=== PATIENT | male | born 1935 | race Caucasian/White ===

== ENCOUNTER → 2016-05-14 | Outpatient (CLI) | payer MEDICARE, OTHER ==
[~2016-05-14] MED LIST: ASPI-664 PO; LOSA50TA6 PO
--- NOTE | 2016-05-14 20:17 | HKNOTE ---
DATE OF SERVICE: 05/14/2016 MAIN COMPLAINT: Left-sided sciatica, pain in both knees. HISTORY OF MAIN COMPLAINT: The patient is an 81-year-old male who complains of pain in his left but tocks which has been present for about a month. He has degenerative osteoarthritis of both knees, s lightly worse on the left side. He complains of pain in the left buttocks with radiation to the low er back but no radiation to the leg. He has numbness and tingling in both feet. He is not able to walk because of his knees. He is not able to walk more than about 100 feet at a time. His knees ar e still his main problem. The right knee is worse than the left. PHYSICAL EXAMINATION: GENERAL: The patient is a fit-looking, youthful 81-year-old male. VITAL SIGNS: Height 5 feet 10 inches. Weight 203 pounds. Blood pressure 100/55, temperature 99.0. BACK: Dynamic pain assessment reveals a pain free range of motion in flexion, extension, lateral be nding, and rotation. Inspection of the spine reveals no list. There is no lumbar paraspinal muscle s pasm. The pelvis is level. Facet stress test is negative bilaterally. Palpation of the spine demonst rates no tenderness of the spinous processes, facet joints, sacroiliac joint, sciatic notch, or post erior thigh. NEUROLOGIC: Motor examination reveals no muscle deficit in the lower extremities. Deep tendon refle xes in the lower extremities: Right knee jerk +, left knee jerk +, right ankle jerk +, left ankle j erk +. Straight leg raising is negative bilaterally at 80 degrees. Lasegue and ANDRES tests are negat geena. KNEES: Clinically the patient has severe arthritis of both knees with marked varus alignment of bot h knees. MANAGEMENT: The patient is advised that the pain in his buttocks is almost certainly coming from hi s spine. The location is not one where hip pain occurs. He has severe arthritis of both his knees. That is his main problem. He has a pain management physician, Dr. Fung. Under sterile conditions, the patient given injection of Monovisc into each knee, and he will be see n again as necessary for further evaluation and treatment. Dictated By: SHREE DE GUZMAN/CARLYN Conf#: [id number] DID#: [id number]
== END | disposition home or self-care (01) ==
LOC: HKI 14:19
DX: M17.0 Bilateral primary osteoarthritis of knee (principal); M54.32 Sciatica, left side; M25.562 Pain in left knee; M25.561 Pain in right knee
CPT/HCPCS: 20610; G0463; J7327

== ENCOUNTER → 2016-05-28 | Outpatient (CLI) | payer MEDICARE, OTHER ==
--- NOTE | 2016-05-29 20:22 | HKNOTE ---
DATE OF SERVICE: 05/28/2016 The patient comes with the MRI scan for review. The MRI of his lumbar spine obtained on 05/24/[address] Melinda Duong as showing "at L4-5 there is a degenerative anterolisthesis, slig htly progressive, and 1 to 2 mm diffuse bulging of the annulus, which moderately narrows the canal a nd mildly to moderately narrows the left neural foramen." The patient continues to have symptoms. He is advised that the MRI does not show any pathology that I believe will require surgery. He should continue management with his pain management doctor. I tried to refer him to Dr. Ryan, but he is very satisfied with his current pain management physicia n. Dictated By: SHREE DE GUZMAN/CARLYN Conf#: [id number] DID#: [id number]
== END | disposition home or self-care (01) ==
LOC: HKI 14:05
DX: M43.16 Spondylolisthesis, lumbar region (principal)
CPT/HCPCS: G0463

== ENCOUNTER → 2016-07-02 | Outpatient (CLI) | payer MEDICARE, OTHER ==
--- NOTE | 2016-07-02 15:54 | RADRPT ---
PROCEDURE: XR Knees. CLINICAL INDICATION: Bilateral knee pain. TECHNIQUE: Total of six views. Frontal, oblique, and lateral views of both knees. COMPARISON: 03/15/2014. FINDINGS: There is no fracture or dislocation. The soft tissues are normal. There are degenerative changes with osteophytes arising from all 3 joint compartment margins. There is bilateral medial joint compartment narrowing, subarticular sclerosis, and deformity. There is no lytic or blastic lesion. There is no radiopaque foreign body. IMPRESSION: 1. Severe degenerative changes of both knees predominately involving the medial joint compartments. 2. No significant change from 03/15/2014. RPTAT: QQ .Dennis Fall MD, MD Date Time Electronically viewed and signed by .Dennis Fall MD, MD on 07/02/2016 15:54 .R/
--- NOTE | 2016-07-02 19:59 | HKNOTE ---
DATE OF SERVICE: 07/02/2016 The patient continues to complain of pain in both knees. The right knee is slightly worse than the left side. The problem seems to be getting worse. He states that he has known for some time that gerda murray will need to have knee replacement surgeries, but he has chronic lymphatic leukemia, and he has al so had a cardiac stent placed, and he is not sure that his general health is up to having the surger y. The patient has had no chest pain whatsoever since he had the stent placement. Recently was lisa gnosed as having a "small spot on the lung." The approach being taken is a "wait and see approach." He comes in to discuss the operation and what is involved. PHYSICAL EXAMINATION: GENERAL: A fit-looking 81-year-old male, completely alert for time and place and appropriately dres sed. VITAL SIGNS: Height 5 feet 10 inches. Weight 203 pounds. Blood pressure 115/60, temperature 98.4. GAIT: The patient walks without a walking aid. He has a marked antalgic gait. RIGHT KNEE: The right knee shows normal alignment. Active and passive extension lacks 5 degrees. Active and passive flexion is to 95 degrees. Marked pain on attempting further flexion. The medial and lateral collateral ligaments and cruciate ligaments are intact. Radha test is negative. The re is 6+ crepitus in the knee and under the patella. There is no effusion, tenderness, scarring or cysts. The patella tracks normally. There is no tenderness on the articular surface of the patella or in the patellar groove. The Q angle is normal. LEFT KNEE: The left knee shows normal alignment. Active and passive extension lacks 10 degrees. A ctive and passive flexion is to 108 degrees. The medial and lateral collateral ligaments and crucia te ligaments are intact. Radha test is negative. There is 6+ crepitus in the knee ____ patella. There is no effusion, tenderness, scarring or cysts. The patella tracks normally. There is no ten derness on the articular surface of the patella or in the patellar groove. The Q angle is normal. The patient also has a marked bleeding tendency. He is under the care of cerner analyst Dr. Sushil mcbride. The patient had a hernia repair about a year ago which "bled like crazy." The patient has also had C. difficile at least 3 times. He is extremely worried about keagan C . difficile infection again. He was seen by Dr. Paolo Recio, a driver/guide who also re-oper ated on the hernia. DIAGNOSES: 1. Severe degenerative osteoarthritis of both knees, worse on the right side. 2. Chronic lymphatic leukemia. 3. Chronic bleeding tendency. 4. History of cardiac stent placement. 5. History of chest pain. 6. A "small spot on my 1 lung." 7. Multiple infections with Clostridium difficile. MANAGEMENT: A prolonged period of time was spent with this patient discussing knee replacement surg mark anthony and what is involved. A large part of his problem is more than just the above. He is extremely afraid of the surgery and indicates that he is afraid of the pain that would ensue. A huge amount of time was spent explaining the procedure to him. He was shown videos of patients of mine who made rapid recoveries without pain. I will contact Dr. Golden, Dr. 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 The patient will be called thereafter to discuss. Dictated By: SHREE DE GUZMAN/CARLYN Conf#: [id number] DID#: [id number]
== END | disposition home or self-care (01) ==
LOC: HKI 14:22
DX: M17.0 Bilateral primary osteoarthritis of knee (principal); C91.10 Chronic lymphocytic leukemia of B-cell type not having achieved remission; D68.9 Coagulation defect, unspecified; Z95.5 Presence of coronary angioplasty implant and graft; Z86.19 Personal history of other infectious and parasitic diseases
CPT/HCPCS: 73562; G0463

== ENCOUNTER → 2016-09-04 | Outpatient (CLI) | payer MEDICARE, OTHER ==
--- NOTE | 2016-09-04 22:23 | HKNOTE ---
DATE OF SERVICE: 09/04/2016 The patient continues to have pain in both knees. Currently the right is worse than the left, but i t alternates and sometimes the left is worse. He gets pain every day with every step that he takes. He is markedly limited in the distances he can walk. He cannot go more than half a block at a gt e. He is on aspirin and fish oil, and to have multiple bruises throughout his body. His x-rays were reviewed. He certainly has end-stage osteoarthritis of both knees. He is 81, but h is life expectancy is fairly good, despite the hematological problems. Note, that his problems incl ude chronic lymphatic leukemia. Chronic bleeding tendency. History of cardiac stent placement. MANAGEMENT: We spent a long time discussing knee replacement surgery. I gave him the grand tour, i ncluding showing him video tapes of some of my patients who have had knee replacement surgery. The patient is most concerned about the leukemia and what it means for him in terms of antibiotics h e should take. He states "I know I am going to get this done soon, but I must be confident that I w ill get through it okay." I will call his sound assistant, Dr. 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
== END | disposition home or self-care (01) ==
LOC: HKI 13:36
PROVIDERS: ATTEND Orthopaedic Surgery
DX: M25.561 Pain in right knee (principal); M25.562 Pain in left knee
CPT/HCPCS: G0463